=== PATIENT | male | born 1985 | race African-American/Black ===

== ENCOUNTER 2017-07-30 11:54 | Emergency (ER) | payer MEDICAID, MEDICARE ==
[~2017-07-30] VITALS: Ht 182.9 cm; Wt 91.0 kg
[2017-07-30] MEDS ORDERED: OLAN2.5T3 PO (12:21)
[2017-07-30 21:18] LABS: CLARITY URINE CLEAR (CLEAR); COLOR URINE YELLOW (YELLOW); KETONES URINE 1+ (NEGATIVE); LEUKOCYTE ESTERASE URINE NEGATIVE (NEGATIVE); NITRITE URINE NEGATIVE (NEGATIVE); OCCULT BLOOD URINE NEGATIVE (NEGATIVE); PROTEIN URINE 2+ (NEGATIVE); SPECIFIC GRAVITY URINE 1.025 (1.005-1.030); UROBILINOGEN URINE 0.2 E.U./dL (0.2-1.0)
[2017-07-30 21:19] VITALS: BP 133/77
== END 2017-07-30 23:02 | disposition left against medical advice (07) ==
LOC: ER 12:16
DX: Z53.21 Procedure and treatment not carried out due to patient leaving prior to being seen by health care provider (principal)
CPT/HCPCS: 81001